=== PATIENT | male | born 1955 | race Caucasian/White ===

== ENCOUNTER 2017-06-07 12:50 | Observation (INO) | payer BC ==
[~2017-06-07 12:50] MED LIST: ACET-1935 PO; ASPI-715 PO; CEP250 PO; CETI1TAB75 PO; DOXY25TA36 PO; FEXO1TAB39 PO; MULT1CAP41 PO; SIMV-1 PO
--- NOTE | 2017-06-07 12:55 | ER Report ---
History and Physical Time Seen By MD: 12:55 HPI/ROS 61 y/o male with a history of MIs and stents presents with acute LUQ and midepigastric abdominal pain that started early this morning. He says it is not chest pain. He has had similar pain such as this before but the symptoms usually , and resolves spontaneously very quickly. The severity of this episode is worse any has had in the past, and also the pain continues to worsen and not subside. He also reports nausea and vomiting. He has been on antibiotics for the past 5 days for a sinusitis. He is a pack a day smoker and also drinks coffee. He denies any trauma. No hematemesis or hematochezia. He does not drink alcohol. States that the pain has been relieved before with Zantac which she takes when necessary. He does not take a PPI or Zantac regularly. He denies any lower abdominal pain. No urinary symptoms, no hematuria. Allergies: Coded Allergies: No Known Drug Allergies (Verified , 04/16/12) Home Meds Reported Medications Amoxicillin/Pot Clav 875-125 Mg Tab (AUGMENTIN 875-125 TABLET) 1 Each Tablet, 1 TAB PO Q12H, TAB 06/07/17 Metoprolol Succinate (METOPROLOL SUCCINATE) 25 Mg Tab.er.24h, 1 TAB PO QDAY, TAB 06/07/17 Pravastatin Sodium (PRAVACHOL) 20 Mg Tablet, 40 MG PO QDAY, TAB 06/07/17 Lisinopril (LISINOPRIL) 5 Mg Tablet, 5 MG PO QDAY, TAB 18 Aspirin (Aspirin) 81 Mg Tablet.dr, 81 MG PO 04/16/12 Multivitamins W-Minerals (Multivitamin) 1 Cap Capsule, 1 CAP PO, 0 Refills 08/20/08 Discontinued Reported Medications Clopidogrel Bisulfate (PLAVIX) 75 Mg Tablet, 1 TAB PO QDAY, TAB 06/07/17 Doxylamine Succinate (Sleep Aid) 25 Mg Tablet, 25 MG PO 04/16/12 P-Ephed Hcl/Fexofenadine Hcl (Ada-D 12 Hour Tablet) 1 Tab.sr .12 H Tab.sr.12h, 1 TAB.SR PO Q12H 04/16/12 Reviewed Nurses Notes: Yes Old Medical Records Reviewed: Yes Hx Smoking: Yes (1PPD) Exposure to Second Hand Smoke?: No Hx Substance Use Disorder: No Hx Alcohol Use: No Constitutional Vital Sign - Last 24 Hours 06/07/17 06/07/17 06/07/17 06/07/17 12:54 12:57 13:05 13:20 Temp 98.4 Pulse 116 112 112 Resp 24 B/P (MAP) 131/92 131/92 (105) Pulse Ox 94 96 96 O2 Delivery Room Air 06/07/17 06/07/17 06/07/17 06/07/17 13:34 13:35 13:45 13:50 Pulse 102 98 B/P (MAP) 129/82 (98) 139/88 (105) Pulse Ox 97 96 06/07/17 06/07/17 06/07/17 06/07/17 14:00 14:45 14:50 15:00 Pulse 100 B/P (MAP) 142/88 (106) 143/93 (110) 153/92 (112) Pulse Ox 95 06/07/17 06/07/17 06/07/17 06/07/17 15:15 15:20 15:30 15:45 Pulse 95 B/P (MAP) 126/92 (103) ???/??? (1665) ???/??? (1665) Pulse Ox 90 06/07/17 06/07/17 06/07/17 06/07/17 15:50 15:55 16:00 16:15 Pulse 101 B/P (MAP) 132/83 (99) 110/84 (93) 115/88 (97) Pulse Ox 91 06/07/17 06/07/17 06/07/17 06/07/17 16:20 16:26 16:31 16:45 Pulse 101 101 B/P (MAP) 134/77 (96) Pulse Ox 89 95 91 18 18 18 06/07/17 17:00 17:01 17:15 17:30 Pulse 103 B/P (MAP) 126/86 (99) 121/84 (96) 109/70 (83) Pulse Ox 92 18 18 18 06/07/17 17:31 17:45 18:00 18:01 Pulse 96 100 B/P (MAP) 98/71 (80) 124/71 (88) Pulse Ox 91 92 06/07/17 18:15 B/P (MAP) 108/69 (82) Intake and Output 06/07/17 06/07/17 06/08/17 15:00 23:00 07:00 Intake Total 1000 ml 1200 ml Balance 1000 ml 1200 ml Physical Exam General Appearance: The patient is alert, has no immediate need for airway protection and no current signs of toxicity. Eyes: Pupils equal and round no injection. Respiratory: Chest is non tender, lungs are clear to auscultation. Cardiac: regular rate and rhythm Gastrointestinal: Abdomen is soft with TTP of the midepigastric and LUQ Extremities have full range of motion and are non tender. Skin: No rashes or lesions. DIFFERENTIAL DIAGNOSIS: After history and physical exam differential diagnosis was considered for abdominal pain including but not limited to appendicitis, cholecystitis, gastritis and urinary tract infection. Medical Decision Making Data Points Result Diagram: 06/07/17 1326 06/07/17 1326 Laboratory Hematology Test 06/07/17 00:00 06/07/17 13:26 06/07/17 15:26 06/07/17 18:07 Urine Color Yellow Urine Clarity Clear Urine pH 7.0 pH (4.8-9.5) Urine Specific Onward 1.028 Urine Protein Negative mg/dL (NEGATIVE) Urine Glucose (UA) Negative mg/dL (NEGATIVE) Urine Ketones 20 mg/dL (NEGATIVE) Urine Blood Negative (NEGATIVE) Urine Nitrite Negative (NEGATIVE) Urine Bilirubin Negative (NEGATIVE) Urine Urobilinogen Negative mg/dL (0.2-1.9) Urine Leukocyte Esterase Negative (NEGATIVE) Urine RBC 1 /HPF (0-2/HPF) Urine WBC None /HPF (0-5/HPF) Urine Squamous Epithelial Cells None /LPF (</=FEW) Urine Transitional Epithelial Cells Few /LPF (NONE-FEW) Urine Bacteria Negative /HPF (NONE-FEW) Urine Mucus Few /HPF (NONE-FEW) Red Blood Count 5.45 M/uL (4.00-5.60) Mean Corpuscular Volume 95.9 fL (80.0-96.0) Mean Corpuscular Hemoglobin 34.1 pg (26.0-33.0) Mean Corpuscular Hemoglobin Concent 35.5 g/dL (32.0-36.0) Red Cell Distribution Width 13.1 % (11.5-14.5) Mean Platelet Volume 8.8 fL (7.2-11.1) Neutrophils (%) (Auto) 73.3 % (39.4-72.5) Lymphocytes (%) (Auto) 19.9 % (17.6-49.6) Monocytes (%) (Auto) 5.0 % (4.1-12.4) Eosinophils (%) (Auto) 1.0 % (0.4-6.7) Basophils (%) (Auto) 0.8 % (0.3-1.4) Nucleated RBC Relative Count (auto) 0.5 /100WBC Neutrophils # (Auto) 10.7 K/uL (2.0-7.4) Lymphocytes # (Auto) 2.9 K/uL (1.3-3.6) Monocytes # (Auto) 0.7 K/uL (0.3-1.0) Eosinophils # (Auto) 0.1 K/uL (0.0-0.5) Basophils # (Auto) 0.1 K/uL (0.0-0.1) Nucleated RBC Absolute Count (auto) 0.07 K/uL Prothrombin Time 13.0 seconds (12.0-14.4) Prothromb Time International Ratio 0.98 Activated Partial Thromboplast Time 26 seconds (23-35) Sodium Level 139 mmol/L (137-145) Potassium Level 4.3 mmol/L (3.5-5.0) Chloride Level 100 mmol/L (98-107) Carbon Dioxide Level 21 mmol/L (22-30) Blood Urea Nitrogen 17 mg/dl (9-21) Creatinine 1.10 mg/dl (0.66-1.25) Glomerular Filtration Rate Calc > 60.0 Random Glucose 166 mg/dl (75-110) Calcium Level 10.0 mg/dl (8.4-10.2) Total Bilirubin 0.7 mg/dl (0.2-1.3) Aspartate Amino Transf (AST/SGOT) 42 U/L (0-35) Alanine Aminotransferase (ALT/SGPT) 57 U/L (0-56) Alkaline Phosphatase 86 U/L (0-126) Total Protein 8.0 gm/dl (6.3-8.2) Albumin 4.4 g/dl (3.5-5.0) Lipase 137 U/L (23-300) Lactate 2.5 mmol/L (0.7-2.1) Chemistry Test 06/07/17 00:00 06/07/17 13:26 06/07/17 15:26 06/07/17 18:07 Urine Color Yellow Urine Clarity Clear Urine pH 7.0 pH (4.8-9.5) Urine Specific Onward 1.028 Urine Protein Negative mg/dL (NEGATIVE) Urine Glucose (UA) Negative mg/dL (NEGATIVE) Urine Ketones 20 mg/dL (NEGATIVE) Urine Blood Negative (NEGATIVE) Urine Nitrite Negative (NEGATIVE) Urine Bilirubin Negative (NEGATIVE) Urine Urobilinogen Negative mg/dL (0.2-1.9) Urine Leukocyte Esterase Negative (NEGATIVE) Urine RBC 1 /HPF (0-2/HPF) Urine WBC None /HPF (0-5/HPF) Urine Squamous Epithelial Cells None /LPF (</=FEW) Urine Transitional Epithelial Cells Few /LPF (NONE-FEW) Urine Bacteria Negative /HPF (NONE-FEW) Urine Mucus Few /HPF (NONE-FEW) White Blood Count 14.6 k/uL (4.5-11.0) Red Blood Count 5.45 M/uL (4.00-5.60) Hemoglobin 18.6 g/dL (14.0-18.0) Hematocrit 52.3 % (42.0-52.0) Mean Corpuscular Volume 95.9 fL (80.0-96.0) Mean Corpuscular Hemoglobin 34.1 pg (26.0-33.0) Mean Corpuscular Hemoglobin Concent 35.5 g/dL (32.0-36.0) Red Cell Distribution Width 13.1 % (11.5-14.5) Platelet Count 306 K/uL (150-450) Mean Platelet Volume 8.8 fL (7.2-11.1) Neutrophils (%) (Auto) 73.3 % (39.4-72.5) Lymphocytes (%) (Auto) 19.9 % (17.6-49.6) Monocytes (%) (Auto) 5.0 % (4.1-12.4) Eosinophils (%) (Auto) 1.0 % (0.4-6.7) Basophils (%) (Auto) 0.8 % (0.3-1.4) Nucleated RBC Relative Count (auto) 0.5 /100WBC Neutrophils # (Auto) 10.7 K/uL (2.0-7.4) Lymphocytes # (Auto) 2.9 K/uL (1.3-3.6) Monocytes # (Auto) 0.7 K/uL (0.3-1.0) Eosinophils # (Auto) 0.1 K/uL (0.0-0.5) Basophils # (Auto) 0.1 K/uL (0.0-0.1) Nucleated RBC Absolute Count (auto) 0.07 K/uL Prothrombin Time 13.0 seconds (12.0-14.4) Prothromb Time International Ratio 0.98 Activated Partial Thromboplast Time 26 seconds (23-35) Glomerular Filtration Rate Calc > 60.0 Calcium Level 10.0 mg/dl (8.4-10.2) Total Bilirubin 0.7 mg/dl (0.2-1.3) Aspartate Amino Transf (AST/SGOT) 42 U/L (0-35) Alanine Aminotransferase (ALT/SGPT) 57 U/L (0-56) Alkaline Phosphatase 86 U/L (0-126) Total Protein 8.0 gm/dl (6.3-8.2) Albumin 4.4 g/dl (3.5-5.0) Lipase 137 U/L (23-300) Lactate 2.5 mmol/L (0.7-2.1) Coagulation Test 06/07/17 13:26 Prothrombin Time 13.0 seconds Prothromb Time International Ratio 0.98 Activated Partial Thromboplast Time 26 seconds Urinalysis Test 06/07/17 00:00 Urine Color Yellow Urine Clarity Clear Urine pH 7.0 pH (4.8-9.5) Urine Specific Onward 1.028 Urine Protein Negative mg/dL (NEGATIVE) Urine Glucose (UA) Negative mg/dL (NEGATIVE) Urine Ketones 20 mg/dL (NEGATIVE) Urine Blood Negative (NEGATIVE) Urine Nitrite Negative (NEGATIVE) Urine Bilirubin Negative (NEGATIVE) Urine Urobilinogen Negative mg/dL (0.2-1.9) Urine Leukocyte Esterase Negative (NEGATIVE) Urine RBC 1 /HPF (0-2/HPF) Urine WBC None /HPF (0-5/HPF) Urine Squamous Epithelial Cells None /LPF (</=FEW) Urine Transitional Epithelial Cells Few /LPF (NONE-FEW) Urine Bacteria Negative /HPF (NONE-FEW) Urine Mucus Few /HPF (NONE-FEW) ED Course/Re-evaluation ED Course This is a 61-year-old male who presented to the emergency department with acute midepigastric and left upper quadrant abdominal pain. Although he does have a cardiac history he said this is not similar to the pain he had with his SC. Sclerae abdominal and not chest pain. HEENT no changes on his EKG. He had a normal troponin after pain for 5-6 hours. Repeat a 2nd troponin. He had a CT scan which was unremarkable. The pain is reproducible right at the mid epigastric region. I think it is either underlying peptic ulcer disease or esophagitis. He did improve with a GI cocktail and now is getting Protonix IV and Reglan. He does continue to feel nauseous. Initially he met criteria for sepsis so was given a dose of Zosyn given his abdominal pain. His lactate has improved with IV fluids. In spite of his improvement he does continue to feel nauseous and had episodes of vomiting so I spoke with Dr. Castillo to about admitting him to the hospitalist service. Decision to Disposition Date: Jun 07, 2017 Decision to Disposition Time: 17:50 Depart Departure Latest Vital Signs Vital Signs Date Time Temp Pulse Resp B/P (MAP) Pulse Ox O2 Delivery O2 Flow Rate FiO2 06/07/17 18:15 108/69 (82) 06/07/17 18:01 100 92 06/07/17 12:54 98.4 24 Room Air Impression: Primary Impression: Epigastric abdominal pain Condition: Improved Disposition: Admitted from ER JODY ESQUIVEL MD Jun 07, 2017 12:55
[2017-06-07] MEDS ORDERED: NS(*) 0.9% 1000 ML BAG 1,000 ML IV ONE ×3 (13:08→17:15)
[2017-06-07] MEDS ORDERED: MORPHINE 4 MG/ML SDV IVP ONE (13:10)
[2017-06-07] MEDS ORDERED: ONDANSETRON 4 MG/2 ML VIAL IVP ONE (13:10)
--- NOTE | 2017-06-07 13:22 | EKG ---
FAC[place] [facility] [place]IENT NAME: ZAKIA JACOBSON : [id number] MR: [id number] V: [id number] EXAM DATE: ORDERING PHYSICIAN: JODY ESQUIVEL TECHNOLOGIST: MARYJO Clements Reason : ABD. PAIN Blood Pressure : / mmHG Vent. Rate : 112 BPM Atrial Rate : 112 BPM P-R Int : 140 ms QRS Dur : 068 ms QT Int : 358 ms P-R-T Axes : 068 074 063 degrees QTc Int : 488 [address] Sin[address] tachy[address] No [address]-T abnormalities QTc prolonged When compared with ECG of 16-APR-2012 00:19, ST no longer elevated in Inferior leads ST no longer depressed in Lateral leads T wave inversion no longer evident in Anterolateral leads Confirmed by ALANNA VAZQUEZ ([id number]) on 06/08/2017 12:35:19 AM Referred By: SIERRA Confirmed By:ALANNA VAZQUEZ
[2017-06-07 13:42] LABS: PLATELET COUNT, AUTOMATED 306 K/uL (150-450)
[2017-06-07 13:45] LABS: INR 0.98
[2017-06-07] MEDS ORDERED: LISI5TAB25 PO (13:48)
[2017-06-07] MEDS ORDERED: CLOP75TA43 PO (13:50)
[2017-06-07] MEDS ORDERED: PIPERACILLIN/TAZO*3.375GM VIAL 3.375 GM in NS(*) 0.9% 100 ML ADDVANT BAG 100 ML IVPB ONE (13:55)
[2017-06-07] MEDS ORDERED: diphenhydrAMINE 50 MG/ML VIAL IVP ONE (14:10)
[2017-06-07] MEDS ORDERED: PRAV20TA65 PO (14:16)
[2017-06-07] MEDS ORDERED: METO25TA23 PO (14:16)
[2017-06-07] MEDS ORDERED: IOPAMIDOL 76% 75 ML INFUS BTL 75 ML ONE (14:17)
[2017-06-07] MEDS ORDERED: AMOX-559 PO (14:52)
--- NOTE | 2017-06-07 15:12 | RADIOLOGY IMAGING REPORT ---
FACILITY: [facility] PATIENT NAME: Soham Galloway : 1955 MR: [id number] V: [id number] EXAM DATE: [id number] ORDERING PHYSICIAN: JODY ESQUIVEL TECHNOLOGIST: [place] [facility] [place]: Soham Galloway : 1955 Visit/Account:[id number] Date of Sevice: 06/07/2017 EXAMINATION: CT abdomen and pelvis with contrast COMPARISON: None. HISTORY: Acute left upper quadrant abdominal pain. Septic. PROCEDURE: Multiplanar contrast enhanced CT of the abdomen and pelvis with 75 mL intravenous Isovue 3 70. One of the following dose optimization techniques was utilized in the performance of this exam: A utomated exposure control; adjustment of the mA and/or kV according to the patient's size; or use of an iterative reconstruction technique. Specific details can be referenced in the facility's radiolo gy CT exam operational policy. FINDINGS: Visualized thorax: Right coronary stent. No acute findings. Liver: Hepatic steatosis. Gallbladder and biliary system: Negative Spleen: Negative. Pancreas: Negative. Adrenal glands: Negative. Kidneys and bladder: No renal mass or evidence of an obstructive uropathy. Urinary bladder is unrema rkable. Vessels: Mild aortoiliac and mesenteric atherosclerosis. No abdominal aortic aneurysm. Portal venous system and IVC are unremarkable. Bowel and mesentery: Stomach is within normal limits. Small bowel is unremarkable. Appendix is unrema rkable. There are a few colonic diverticula. No bowel or mesenteric inflammation. Pelvic organs: Negative. Lymph nodes: No adenopathy. Free air/free fluid: None. Abdominal wall and osseous structures: Small bilateral fat-containing inguinal hernias. Left inguinal crease subcutaneous soft tissue stranding; no fluid or gas collection. L5-S1 moderately advanced deg enerative disc disease. No acute osseous abnormality. Incompletely visualized right superficial femor al artery stent. IMPRESSION: 1. Left inguinal crease subcutaneous soft tissue stranding. Correlation with any evidence of trauma o r infection at this site is recommended. 2. No other findings of acute disease in the abdomen or pelvis. 3. Nonacute findings as described above. Report Dictated By: Mesfin Robertson MD at 06/07/2017 3:02 PM Report E-Signed By: Mesfin Robertson MD at 06/07/2017 3:07 PM WSN:[id number]
--- NOTE | 2017-06-07 15:40 | RADIOLOGY IMAGING REPORT ---
FACILITY: [facility] PATIENT NAME: Soham Galloway : 1955 MR: [id number] V: [id number] EXAM DATE: ORDERING PHYSICIAN: JODY ESQUIVEL TECHNOLOGIST: Location: [facility] Patient: Soham Galloway : 1955 Visit/Account:[id number] Date of Sevice: 06/07/2017 Examination: CHEST SINGLE AP Comparison: None. History: Cough. Mid epigastric and left upper quadrant pain. Findings: Cardiac and hilar contour size is within normal limits. Mild peribronchial thickening. No c onsolidation or nodule. No pneumothorax, edema, or effusion. Osseous structures are intact. IMPRESSION: Mild peribronchial thickening suggestive of an acute versus chronic bronchitis or reactive airway dis ease. Report Dictated By: Mesfin Robertson MD at 06/07/2017 3:36 PM Report E-Signed By: Mesfin Robertson MD at 06/07/2017 3:37 PM WSN:[id number]
[2017-06-07] MEDS ORDERED: ATRO/SCOPOL/HYOSCY/PB 5 ML ELX PO ONE (16:15)
[2017-06-07] MEDS ORDERED: LIDOCAINE 2% VISC SLN 15ML UDC PO ONE (16:15)
[2017-06-07] MEDS ORDERED: MAG HYD/AL HYD/SIMETH 30ML UDC PO ONE (16:15)
[2017-06-07] MEDS ORDERED: METOCLOPRAMIDE 10 MG/2 ML SDV IVP ONE (17:15)
[2017-06-07] MEDS ORDERED: PANTOPRAZOLE SOD(*)40 MG VIAL 80 MG in NS(*) 0.9% 100 ML BAG 100 ML IVPB ONE (17:15)
[2017-06-07 18:33] VITALS: BP 126/83
[2017-06-07] MEDS ORDERED: GI COCKTAIL 60 ML BTL PO PRN (18:40)
[2017-06-07] MEDS ORDERED: NS(*) 0.9% 1000 ML BAG 1,000 ML IV PRN (18:40)
[2017-06-07] MEDS ORDERED: PROMETHAZINE 25 MG/ML 1 ML AMP IVP PRN (18:40)
--- NOTE | 2017-06-07 19:14 | History & Physical ---
History of Present Illness History of Present Illness 61yo male with a h/o CAD/PVD who came to the ER for abdominal pain. The pain started at about 0500. It was epigastric and LUQ. It was 9/10 at it's worst. He also had yellow vomit x6 and clear loose stools x2. He denies hematochezia, coffee ground emesis, melena, hematemesis. He vomited two more times in the ER. He has had intermittent abdominal pain in the same area, but never this severe. It has occurred for a couple of years, but has been worse over the last couple of months. He gets pain about once a week. It used to be relieved with prn Zantac, but not recently. Tums has never helped. No cp/sob. He has been on Augmentin for a sinus infection for the last 5 days. In the ER, he was given IVF, Zosyn, morphine, Zofran, Reglan, and a GI cocktail. The ER provider reported that the GI cocktail helped the most. The patient felt they all helped. His pain now is very mild. History Problems: (1) CAD (coronary artery disease) Status: Chronic (2) PVD (peripheral vascular disease) Status: Chronic (3) HTN (hypertension) Status: Chronic (4) Sinusitis Status: Acute (5) History of facial surgery (6) Status post arterial stent (7) History of coronary artery stent placement Home Meds Reported Medications Amoxicillin/Pot Clav 875-125 Mg Tab (AUGMENTIN 875-125 TABLET) 1 Each Tablet, 1 TAB PO Q12H, TAB 06/07/17 Metoprolol Succinate (METOPROLOL SUCCINATE) 25 Mg Tab.er.24h, 1 TAB PO QDAY, TAB 06/07/17 Pravastatin Sodium (PRAVACHOL) 20 Mg Tablet, 40 MG PO QDAY, TAB 06/07/17 Lisinopril (LISINOPRIL) 5 Mg Tablet, 5 MG PO QDAY, TAB 06/07/17 Aspirin (Aspirin) 81 Mg Tablet.dr, 81 MG PO 04/16/12 Multivitamins W-Minerals (Multivitamin) 1 Cap Capsule, 1 CAP PO, 0 Refills 08/20/08 Discontinued Reported Medications Clopidogrel Bisulfate (PLAVIX) 75 Mg Tablet, 1 TAB PO QDAY, TAB 06/07/17 Doxylamine Succinate (Sleep Aid) 25 Mg Tablet, 25 MG PO 04/16/12 P-Ephed Hcl/Fexofenadine Hcl (Ada-D 12 Hour Tablet) 1 Tab.sr .12 H Tab.sr.12h, 1 TAB.SR PO Q12H 04/16/12 Allergies: Coded Allergies: No Known Drug Allergies (Verified , 04/16/12) Hx Smoking: Yes (1PPD) Exposure to Second Hand Smoke?: No Hx Alcohol Use: No Exam Vital Signs Vital Signs Date Time Temp Pulse Resp B/P (MAP) Pulse Ox O2 Delivery O2 Flow Rate FiO2 06/07/17 18:33 98.7 95 16 126/83 (97) 91 Room Air General Appearance: Alert, Awake, No Acute Distress Neuro: No Gross deficits Eyes: PERRLA ENT: Moist Mucous Membranes Cardiovascular: Regular Rate and Rhythm Respiratory: Clear to Auscultation GI: Abd Soft and Non-Tender (He reports some mild pain with epigastric pressure. No guarding. Hyperactive BS) Extremities: No Edema Medical Decision Making Data Points Result Diagram: 06/07/17 1326 06/07/17 1326 Item Value Date Time Total Bilirubin 0.7 mg/dl 06/07/17 1326 Aspartate Amino Transf (AST/SGOT) 42 U/L H 06/07/17 1326 Alanine Aminotransferase (ALT/SGPT) 57 U/L H 06/07/17 1326 Alkaline Phosphatase 86 U/L 06/07/17 1326 Troponin I < 0.012 ng/ml 06/07/17 1526 Troponin I < 0.012 ng/ml 06/07/17 1807 Lactate 2.5 mmol/L H 06/07/17 1526 Lactate 4.6 mmol/L *H 06/07/17 1326 Blood Urea Nitrogen 17 mg/dl 06/07/17 1326 Creatinine 1.10 mg/dl 06/07/17 1326 White Blood Count 14.6 k/uL H 06/07/17 1326 Hemoglobin 18.6 g/dL H 06/07/17 1326 Platelet Count 306 K/uL 06/07/17 1326 Helicobacter pylori IgG Antibody Negative 06/07/17 1326 Urine RBC 1 /HPF 06/07/17 0000 Urine WBC None /HPF 06/07/17 0000 Urine Leukocyte Esterase Negative 06/07/17 0000 Urine Ketones 20 mg/dL H 06/07/17 0000 Prothromb Time International Ratio 0.98 06/07/17 1326 Lipase 137 U/L 06/07/17 1326 EKG / Imaging EKG Interpretation Sinus tachy, no ST-T abnormalities, QTc prolonged. Imaging CXR - Mild peribronchial thickening suggestive of an acute versus chronic bronchitis or reactive airway disease. Abd/Pelvis CT - 1. Left inguinal crease subcutaneous soft tissue stranding. Correlation with any evidence of trauma or infection at this site is recommended. 2. No other findings of acute disease in the abdomen or pelvis. 3. Nonacute findings as described above. Assessment and Plan Problems: (1) Epigastric abdominal pain Status: Acute Assessment & Plan: He presented with acute onset pain. He had no acute abnormalities on CT, his lactate improved with hydration, and now his pain is much better. Likely, he has PUD. He has been started on Protonix IV, which will be continued. Will start Carafate and give GI cocktail prn. He has been having intermittent epigastric pain for years, that has worsened over the last couple of months. The pain used to improve with prn Zantac, but not lately. He is on a daily ASA, but no other NSAIDs. H. Pylori Ab negative. He does well overnight, then he can be discharged with the possible plan of an outpatient EGD. (2) Vomiting Status: Acute Assessment & Plan: Likely, related to above. Will hydrate, recheck a lactate tomorrow, and give Phenergan prn. (3) CAD (coronary artery disease) Status: Chronic Assessment & Plan: He has h/o stents placed in 2012. He is on ASA, but will switch to Plavix. Continue metoprolol and pravastatin. (4) PVD (peripheral vascular disease) Status: Chronic Assessment & Plan: He had a RLE stent placed within the last 6 months. He has done well on follow up studies. See above. (5) HTN (hypertension) Status: Chronic Assessment & Plan: Continue Metoprolol and Lisinopril with parameters. (6) Sinusitis Status: Acute Assessment & Plan: He has been on Augmentin and has two days left. He got a dose of Zosyn in the ER. Will hold Augmentin for now. Copies to: [facility] EMERSON COLMENARES DO Venous Thromboembolism Antithrombotics Is Pt On Any Antithrombotics?: No Exam Sepsis Risk: No Definite Risk ALANNA VAZQUEZ MD Jun 07, 2017 19:14
[2017-06-07] MEDS ORDERED: PRAVASTATIN SOD 20 MG TAB PO SCH (21:00)
[2017-06-07] MEDS: METOPROLOL TART 50 MG TAB PO SCH (21:00)
[2017-06-07 22:56] VITALS: BP 104/60
[2017-06-07] MEDS: SUCRALFATE 1 GM TAB PO SCH (22:58)
[2017-06-08 03:58] VITALS: BP 100/60
[2017-06-08] MEDS: SUCRALFATE 1 GM TAB PO SCH (06:50)
[2017-06-08] MEDS ORDERED: SUCR1TAB51 PO (06:57)
[2017-06-08 07:31] VITALS: BP 112/68
[2017-06-08] MEDS ORDERED: OMEP40CA48 PO (07:58)
[2017-06-08] MEDS ORDERED: CLOP75TA PO (07:59)
--- NOTE | 2017-06-08 08:09 | Hospitalist Depart ---
Discharge Summary Reason for Hosp/Final Diag: (1) Epigastric abdominal pain Status: Acute Hospital Course & Plan: He presented with acute onset pain. He had no acute abnormalities on CT, his lactate improved with hydration, and now his pain is much better. Likely, he has PUD. He has been having intermittent epigastric pain for years, that has worsened over the last couple of months. The pain used to improve with prn Zantac, but not lately. He is on a daily ASA, but no other NSAIDs. H. Pylori Ab negative. He has been started on Protonix IV. Carafate was started. He has tolerated oral intake. He has had some dull intermittent pain, but nothing like when he was admitted. No gross abnormalities on CT. He refused blood tests this morning to look for normalization of lactate, follow up elevated WBC and recheck CMP. He understands what the tests were for. He is safe to be discharged on omeprazole for at least a month and Carafate for a week. ASA has been stopped and he will take Plavix. I have recommended that he get an EGD as an outpatient. (2) Vomiting Status: Acute Hospital Course & Plan: Resolved. Likely, related to PUD or a viral gastroenteritis. (3) CAD (coronary artery disease) Status: Chronic Hospital Course & Plan: He has h/o stents placed in 2013. He is on ASA, but will switch to Plavix. Continue metoprolol and pravastatin. He has been reminded that he needs to stop smoking. (4) PVD (peripheral vascular disease) Status: Chronic Hospital Course & Plan: He had a RLE stent placed within the last 6 months. He has done well on follow up studies. See above. (5) HTN (hypertension) Status: Chronic Hospital Course & Plan: Continue Metoprolol and Lisinopril with parameters. (6) Sinusitis Status: Acute Hospital Course & Plan: He has been on Augmentin and has two days left. He got a dose of Zosyn in the ER. He can resume Augmentin. Departure Weight (Pounds): 190 Result Diagram: 06/07/17 1326 06/07/17 1326 Item Value Date Time Neutrophils (%) (Auto) 73.3 % H 06/07/17 1326 Lymphocytes (%) (Auto) 19.9 % 06/07/17 1326 Monocytes (%) (Auto) 5.0 % 06/07/17 1326 Eosinophils (%) (Auto) 1.0 % 06/07/17 1326 Basophils (%) (Auto) 0.8 % 06/07/17 1326 Prothromb Time International Ratio 0.98 06/07/17 1326 Lactate 4.6 mmol/L *H 06/07/17 1326 Lactate 2.5 mmol/L H 06/07/17 1526 Troponin I < 0.012 ng/ml 06/07/17 1526 Calcium Level 10.0 mg/dl 06/07/17 1326 Total Bilirubin 0.7 mg/dl 06/07/17 1326 Aspartate Amino Transf (AST/SGOT) 42 U/L H 06/07/17 1326 Alanine Aminotransferase (ALT/SGPT) 57 U/L H 06/07/17 1326 Albumin 4.4 g/dl 06/07/17 1326 Lipase 137 U/L 06/07/17 1326 Urine RBC 1 /HPF 06/07/17 0000 Urine Ketones 20 mg/dL H 06/07/17 0000 Urine WBC None /HPF 06/07/17 0000 Urine Transitional Epithelial Cells Few /LPF 06/07/17 0000 Urine Squamous Epithelial Cells None /LPF 06/07/17 0000 Helicobacter pylori IgG Antibody Negative 06/07/17 1326 Imaging CXR - Mild peribronchial thickening suggestive of an acute versus chronic bronchitis or reactive airway disease. Abd/Pelvis CT - 1. Left inguinal crease subcutaneous soft tissue stranding. Correlation with any evidence of trauma or infection at this site is recommended. 2. No other findings of acute disease in the abdomen or pelvis. 3. Nonacute findings as described above. EKG Vent. Rate : 112 BPM Atrial Rate : 112 BPM P-R Int : 140 ms QRS Dur : 068 ms QT Int : 358 ms P-R-T Axes : 068 074 063 degrees QTc Int : 488 ms Sinus tachy[address] No ST-T abnormalities QTc prolonged When compared with ECG of 16-APR-2012 00:19, ST no longer elevated in Inferior leads ST no longer depressed in Lateral leads T wave inversion no longer evident in Anterolateral leads Confirmed by ALANNA VAZQUEZ ([id number]) on 06/08/2017 12:35:19 AM Condition: Improved Discharge: Home Discharge Instructions Home Meds Active Scripts Clopidogrel Bisulfate (CLOPIDOGREL) 75 Mg Tablet, 75 MG PO QDAY, #30 Prov:ALANNA VAZQUEZ MD 06/08/17 Omeprazole (OMEPRAZOLE) 40 Mg Capsule.dr, 40 MG PO QDAY, #30 CAP Prov:ALANNA VAZQUEZ MD 06/08/17 Sucralfate (SUCRALFATE) 1 Gm Tablet, 1 GM PO ACHS1, #30 Prov:ALANNA VAZQUEZ MD 06/08/17 Reported Medications Metoprolol Succinate (METOPROLOL SUCCINATE) 25 Mg Tab.er.24h, 1 TAB PO QDAY, TAB 06/07/17 Pravastatin Sodium (PRAVACHOL) 20 Mg Tablet, 40 MG PO QDAY, TAB 06/07/17 Lisinopril (LISINOPRIL) 5 Mg Tablet, 5 MG PO QDAY, TAB 06/07/17 Multivitamins W-Minerals (Multivitamin) 1 Cap Capsule, 1 CAP PO, 0 Refills 08/20/08 Discontinued Reported Medications Aspirin (Aspirin) 81 Mg Tablet.dr, 81 MG PO 04/16/12 Amoxicillin/Pot Clav 875-125 Mg Tab (AUGMENTIN 875-125 TABLET) 1 Each Tablet, 1 TAB PO Q12H, TAB 06/07/17 Clopidogrel Bisulfate (PLAVIX) 75 Mg Tablet, 1 TAB PO QDAY, TAB 06/07/17 Doxylamine Succinate (Sleep Aid) 25 Mg Tablet, 25 MG PO 04/16/12 P-Ephed Hcl/Fexofenadine Hcl (Ada-D 12 Hour Tablet) 1 Tab.sr .12 H Tab.sr.12h, 1 TAB.SR PO Q12H 04/16/12 Diet: Regular, No Added Salt (BENITEZ) Activity: As Tolerated Special Instructions: Stop smoking. Go to the ER for worsening pain, vomiting, blood in stool, black tarry stool. Follow up with your PCP in 1-2 weeks to see how you are doing with the medication changes. Also, to schedule an EGD. Copies to: [facility] EMERSON COLMENARES DO Venous Thromboembolism Antithrombotics Is Pt On Any Antithrombotics?: No ALANNA VAZQUEZ MD Jun 08, 2017 08:09
[2017-06-08] MEDS: METOPROLOL TART 50 MG TAB PO SCH (08:32)
[2017-06-08] MEDS ORDERED: LISINOPRIL 5 MG TAB PO SCH (09:00)
[2017-06-08] MEDS ORDERED: PANTOPRAZOLE SOD 40 MG IV VIAL IVP SCH (09:00)
[2017-06-08] MEDS ORDERED: CLOPIDOGREL BISULFATE 75MG TAB PO SCH (09:00)
[2017-06-10] MEDS ORDERED: INFLUENZA VIRUS VAC 0.5 ML SYR IM ONLY ONE (09:00)
== END 2017-06-08 08:19 | disposition home or self-care (01) ==
LOC: ER 12:57 → MED 18:19
PROVIDERS: ADMIT Internal Medicine; ATTEND Internal Medicine
DX: R10.13 Epigastric pain (principal); I25.810 Atherosclerosis of coronary artery bypass graft(s) without angina pectoris; I10 Essential (primary) hypertension; I73.9 Peripheral vascular disease, unspecified; J32.9 Chronic sinusitis, unspecified
CPT/HCPCS: 36415; 71045; 74177; 81001; 83605; 83690; 84484; 85025; 85610; 85730; 86677; 87040; 87088; 93005; 99285; C9113; G0378; J1200; J2270; J2405; J2543; J2550; J2765; J7030; J7050; Q9967; 82040; 82247; 82310; 82374; 82435; 82565; 82947; 84075; 84132; 84155; 84295; 84450; 84460; 84520